=== PATIENT | male | born 1990 | race Caucasian/White ===

== ENCOUNTER 2019-07-18 22:55 | Emergency (ER) | payer MEDICAID, OTHER ==
[~2019-07-18] VITALS: Ht 180.3 cm; Wt 127.0 kg
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
[2019-07-18] MEDS ORDERED: IBUPROFEN 800 MG TABLET PO ONE (23:45)
[2019-07-18] MEDS ORDERED: ACETAMINOPHEN 325 MG TABLET PO ONE (23:45)
[2019-07-18] MEDS ORDERED: ACETAMINOPHEN ES 500 MG TABLET ONE (23:46)
[2019-07-18] MEDS ORDERED: IBUPROFEN 800 MG TABLET ONE (23:46)
--- NOTE | 2019-07-18 23:50 | NUR ---
Patient transported to CT in stable condition.
--- NOTE | 2019-07-19 00:03 | NUR ---
Patient back in room from CT.
--- NOTE | 2019-07-19 01:20 | NUR ---
Patient discharged to home in stable conditon. Written and verbal after care instructions given. Patient verbalizes understanding of instructions. Patient ambulated with stable gait.
[2019-07-19 01:30] VITALS: BP 151/81
== END 2019-07-19 01:20 | disposition home or self-care (01) ==
LOC: ER 23:00
DX: S16.1XXA Strain of muscle, fascia and tendon at neck level, initial encounter (principal); S39.012A Strain of muscle, fascia and tendon of lower back, initial encounter; F17.200 Nicotine dependence, unspecified, uncomplicated; V43.52XA Car driver injured in collision with other type car in traffic accident, initial encounter; Y93.89 Activity, other specified; Y92.89 Other specified places as the place of occurrence of the external cause; Y99.8 Other external cause status
CPT/HCPCS: 72125; 72131; A4663; A9150